=== PATIENT | male | born 1965 | race African-American/Black ===

== ENCOUNTER 2019-12-29 22:54 | Emergency (ER) | payer SELFPAY ==
[~2019-12-29] VITALS: Ht 170.2 cm; Wt 49.9 kg
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
--- NOTE | 2019-12-29 23:11 | NUR ---
ED Nurse Note: staff technologist at bedside performing foot xray
[2019-12-29] MEDS ORDERED: HYDROcodone/Acetamin 5/325 tab ORAL ONE (23:15)
[2019-12-29] MEDS ORDERED: IBUPROFEN600 M1 ORAL (23:30)
[2019-12-29] MEDS ORDERED: HYDROCODON-ACE1 EA15 ORAL (23:30)
[2019-12-29 23:50] VITALS: BP 142/88
--- NOTE | 2019-12-29 23:50 | NUR ---
ER DISCHARGE NOTE: Patient is cleared to be discharged per ERMD, pt is aox4, on room air, with stable vital signs. pt states pain had improved. pt was given dc, paper prescriptions, homeless resources packet, clean clothes and meal upon discharge. pt was able to verbalize understanding, pt id band removed. pt is able to ambulate with walker, steady but slow gait. pt took all belongings.
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
--- NOTE | 2019-12-30 16:20 | Diagnostic Imaging Report ---
Indication: Trauma, pain Technique: 3 views right foot Comparison: none Findings: There are posttraumatic and postsurgical changes of the distal tibia and fibula-please refer to separate ankle radiograph report. The bones appear osteoporotic. There is mild hallux valgus. There is mild hammertoe deformity of the second through fifth digit. There is pes planus abnormality. No definite acute foot fracture. Impression: Postsurgical and posttraumatic changes of the ankle No definite acute foot fracture. Osteoporotic change, possibly due to disuse
== END 2019-12-29 23:50 | disposition home or self-care (01) ==
LOC: EDBD 22:54 → EMR 23:14
DX: S82.201D Unspecified fracture of shaft of right tibia, subsequent encounter for closed fracture with routine healing (principal); S82.401D Unspecified fracture of shaft of right fibula, subsequent encounter for closed fracture with routine healing; V03.10XA Pedestrian on foot injured in collision with car, pick-up truck or van in traffic accident, initial encounter; Y92.410 Unspecified street and highway as the place of occurrence of the external cause; I10 Essential (primary) hypertension; B20 Human immunodeficiency virus [HIV] disease
CPT/HCPCS: 99283

== ENCOUNTER → 2020-01-13 | Emergency (ER) | payer SELFPAY ==
[~2020-01-13] VITALS: Ht 170.2 cm; Wt 47.6 kg
[~2020-01-13] MED LIST: AUGMENTIN 875-1 EAC1 ORAL; HYDROCODON-ACE1 EA15 ORAL; IBUPROFEN600 M1 ORAL; Lidocaine 2% 20mg/ml/EPI 0.01mg/ml 20ml ONE; Tetanus/Diptheria/Pertussis IM ONE
[2020-01-13 11:33] VITALS: BP 183/98
--- NOTE | 2020-01-13 11:34 | Diagnostic Imaging Report ---
Indications: Forehead trauma, head laceration Technique: Spiral acquisitions obtained through the brain. Angled axial and coronal 5 x 5 mm slices were reconstructed. Total dose length product 1125 mGycm. CTDI vol(s) 53 mGy. Dose reduction achieved using automated exposure control Comparison: None. Findings: There is left periorbital soft tissue contusion. There is also soft tissue contusion in the supraorbital frontal region just to the left of midline. Some associated soft tissue gas is in keeping with stated clinical history of laceration. There are some punctate opacities in the subcutaneous fat which may indicate small foreign bodies. No acute intracranial hemorrhage or edema. No mass effect nor midline shift. There is age-related enlargement of the ventricles and extra axial CSF spaces. There is periventricular deep white matter low-attenuation, consistent with chronic microvascular ischemic changes. There are old basal ganglia lacunar infarcts bilaterally. There is encephalomalacia in the right inferior frontal lobe, consistent with old infarct. There is encephalomalacia in the anterior right temporal lobe, consistent with old infarct. The calvarium is intact. The mastoids are clear. Orbits and sinuses are unremarkable Impression: Evidence of left periorbital soft tissue contusion and left frontal laceration Negative for acute intracranial bleed or mass effect Fairly extensive chronic and age-related changes, as described, out of portion to patient's age Multiple old infarcts The CT scanner at [facility] is accredited by the [employer] and the scans are performed using protocols designed to limit radiation exposure to as low as reasonably achievable to attain images of sufficient resolution adequate for diagnostic evaluation.
[2020-01-13 11:57] LABS: HEMOGLOBIN 9.6 G/DL (14.2-18.0); MEAN CORPUSCULAR VOLUME 88 FL (80-99); PLATELET COUNT 291 K/UL (150-450); RED BLOOD COUNT 3.53 M/UL (4.70-6.10); RED CELL DISTRIBUTION WIDTH 16.9 % (11.6-14.8); WHITE BLOOD COUNT 2.2 K/UL (4.8-10.8)
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
== END | disposition home or self-care (01) ==
LOC: EDUNIT# 10:31 → EDBD 10:33 → EMR 11:00
DX: S01.81XA Laceration without foreign body of other part of head, initial encounter (principal); I10 Essential (primary) hypertension; W17.89XA Other fall from one level to another, initial encounter; F17.200 Nicotine dependence, unspecified, uncomplicated; Y93.89 Activity, other specified; Y92.811 Bus as the place of occurrence of the external cause; Z21 Asymptomatic human immunodeficiency virus [HIV] infection status; Z72.89 Other problems related to lifestyle
CPT/HCPCS: 36415; 70450; 85007; 85025; 90471; 90715; 93005; 99284

== ENCOUNTER 2020-01-18 02:30 | Emergency (ER) | payer MEDICAID ==
[~2020-01-18] VITALS: Ht 170.2 cm; Wt 45.4 kg
[~2020-01-18 02:30] MED LIST changes: -Lidocaine 2% 20mg/ml/EPI 0.01mg/ml 20ml ONE; -Tetanus/Diptheria/Pertussis IM ONE
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
[2020-01-18] MEDS ORDERED: HYDROcodone/Acetamin 7.5/325 tab ORAL ONE (02:45)
[2020-01-18] MEDS ORDERED: Cephalexin 250mg/5ml Susp 100mL Bottle ORAL ONE (02:45)
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
[2020-01-18 03:00] VITALS: BP 128/80
[2020-01-18] MEDS ORDERED: Tetanus/Diptheria/Pertussis IM ONE (03:00)
[2020-01-18] MEDS ORDERED: HYDROCODON-ACE1 EA15 ORAL (03:56)
[2020-01-18] MEDS ORDERED: CEPHALEXIN500 MG ORAL (03:56)
[2020-01-18] MEDS ORDERED: IBUPROFEN600 M1 ORAL (03:56)
--- NOTE | 2020-01-18 04:30 | NUR ---
ED Nurse Note: Pt resting in bed with eyes closed, non-labored breathing, no signs of distress. Will continue to monitor
[2020-01-18 06:45] VITALS: BP 120/87
--- NOTE | 2020-01-18 06:45 | NUR ---
ER DISCHARGE NOTE: Patient is cleared to be discharged per ERMD, pt is aox4, on room air, with stable vital signs. pt was given dc and prescription instructions, pt was able to verbalize understanding, pt id band removed. pt is able to ambulate with steady gait with walker. pt took all belongings.
--- NOTE | 2020-01-18 13:25 | Diagnostic Imaging Report ---
Indication: Bilateral leg pain Technique: 2 views of the right tibia and fibula Comparison: none Findings: Surgical hardware is seen reducing distal right tibial fracture. Fracture line persists, only minimal callus formation and a strata. There is also comminuted fracture of the distal fibular shaft. Technologist reports that injury occurred approximately one month prior the hardware appears intact. No other fractures. Impression: Postsurgical and posttraumatic changes of the right tibia and fibula, findings as expected given history of recent surgical repair of the tibia fibular fracture No definite acute process
--- NOTE | 2020-01-18 13:25 | Diagnostic Imaging Report ---
Indication: Bilateral leg pain, itching and cramping Technique: 2 views of the left tibia and fibula Comparison: none Findings: No acute fractures. No dislocations. Joint spaces are preserved. No radiopaque foreign body Impression: Negative
== END 2020-01-18 06:45 | disposition home or self-care (01) ==
LOC: EDBD 02:30 → EMR 02:45
DX: S82.491A Other fracture of shaft of right fibula, initial encounter for closed fracture (principal); M79.605 Pain in left leg; B20 Human immunodeficiency virus [HIV] disease; Z91.14 Patient's other noncompliance with medication regimen; V03.10XA Pedestrian on foot injured in collision with car, pick-up truck or van in traffic accident, initial encounter; Y92.410 Unspecified street and highway as the place of occurrence of the external cause; I10 Essential (primary) hypertension; Z86.73 Personal history of transient ischemic attack (TIA), and cerebral infarction without residual deficits; S00.81XA Abrasion of other part of head, initial encounter; S80.812A Abrasion, left lower leg, initial encounter; Z23 Encounter for immunization
CPT/HCPCS: 73590; 90471; 90715; Z7502; 99284

== ENCOUNTER 2020-01-21 00:59 | Emergency (ER) | payer MEDICAID ==
[~2020-01-21] VITALS: Ht 170.2 cm; Wt 63.5 kg
[~2020-01-21 00:59] MED LIST changes: +CEPHALEXIN500 MG ORAL
[2020-01-21 01:00] VITALS: BP 122/78
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
[2020-01-21] MEDS ORDERED: Acetaminophen 500mg (ES) tab ORAL ONE (01:15)
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
[2020-01-21] MEDS ORDERED: Ketorolac 60mg Inj IM ONE (01:45)
[2020-01-21] MEDS ORDERED: NAPROXEN500 M1 ORAL (01:52)
[2020-01-21] MEDS ORDERED: NORCO 5-325 TA1 EAC1 ORAL (01:52)
[2020-01-21 02:25] VITALS: BP 128/85
--- NOTE | 2020-01-21 02:25 | NUR ---
ER DISCHARGE NOTE: Patient is cleared to be discharged per ERMD, pt is aox4, on room air, with stable vital signs. pt was given dc and prescription instructions, pt was able to verbalize understanding, pt id band removed without complications. pt is able to ambulate with steady gait with walker. pt took all belongings. provided resources for long term but refused to disclose dispo, pt clothing adequate, food offered.
--- NOTE | 2020-01-21 06:36 | NUR ---
POST DISCHARGE NOTE SW received a consult for homelessness. No social human services assistants was available at the time of discharge.
== END 2020-01-21 02:25 | disposition home or self-care (01) ==
LOC: EDBD 00:59 → EMR 01:13
DX: S90.822A Blister (nonthermal), left foot, initial encounter (principal); Y93.01 Activity, walking, marching and hiking; Y92.9 Unspecified place or not applicable; B20 Human immunodeficiency virus [HIV] disease; Z91.14 Patient's other noncompliance with medication regimen; I10 Essential (primary) hypertension; Z86.73 Personal history of transient ischemic attack (TIA), and cerebral infarction without residual deficits; R20.8 Other disturbances of skin sensation; M79.2 Neuralgia and neuritis, unspecified
CPT/HCPCS: 96372; Z7502; 99283

== ENCOUNTER 2020-04-21 14:12 | Inpatient (IN) | payer MEDICAID ==
[~2020-04-21] VITALS: Ht 162.6 cm; Wt 59.0 kg
[~2020-04-21 14:12] MED LIST changes: +NAPROXEN500 M1 ORAL; +NORCO 5-325 TA1 EAC1 ORAL
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
--- NOTE | 2020-04-21 15:57 | NUR ---
ED Nurse Note:labs drawn and sent
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
--- NOTE | 2020-04-21 16:00 | NUR ---
ED Nurse Note:gave pt a sandwich, juice and a soda.
[2020-04-21 16:16] LABS: MEAN CORPUSCULAR VOLUME 94 FL (80-99); PLATELET COUNT 125 K/UL (150-450); RED CELL DISTRIBUTION WIDTH 19.4 % (11.6-14.8); WHITE BLOOD COUNT 3.4 K/UL (4.8-10.8)
--- NOTE | 2020-04-21 16:18 | Diagnostic Imaging Report ---
Indication: Cough Technique: One view of the chest Comparison: none Findings: Lungs and pleural spaces are clear. Heart size is normal. There is a fracture deformity of the right clavicle Impression: No acute process
[2020-04-21 16:26] LABS: ANION GAP 7 mmol/L (5-15); BLOOD UREA NITROGEN 16 mg/dL (7-18); CALCIUM 8.4 MG/DL (8.5-10.1); CARBON DIOXIDE 25 MMOL/L (21-32); CHLORIDE 105 MMOL/L (98-107); CREATININE 0.8 MG/DL (0.55-1.30); SODIUM 137 MMOL/L (136-145)
[2020-04-21 16:30] LABS: ALANINE AMINOTRANSFERASE 63 U/L (12-78); ALBUMIN 2.9 G/DL (3.4-5.0); ALBUMIN/GLOBULIN RATIO 0.5 (1.0-2.7); ALKALINE PHOSPHATASE 112 U/L (46-116); ASPARTATE AMINO TRANSFERASE 102 U/L (15-37); BILIRUBIN,TOTAL 0.3 MG/DL (0.2-1.0)
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
--- NOTE | 2020-04-21 18:33 | NUR ---
ED Nurse Note:pt resting in no noted distress
[2020-04-21 18:49] VITALS: BP 151/78
--- NOTE | 2020-04-21 19:05 | NUR ---
ED Nurse Note: Patient is in bed resting with eye closed. Respiration even, unlabored.
--- NOTE | 2020-04-21 19:39 | NUR ---
NURSE NOTES: received report from SAMIA Cherry. awaiting pt arrival on unit.
--- NOTE | 2020-04-21 19:45 | NUR ---
TRANSFER TO FLOOR: Patient is stable, transferred to [address] [place] [address] via [facility] as ordered. Report given to REBECCA Tubbs on 4th floor.
[2020-04-21 19:54] VITALS: BP 146/80
--- NOTE | 2020-04-21 20:00 | NUR ---
NURSE NOTES: pt came up via gurney from the ER. alert and oriented x 4, no acute s/s of distress, pt with pain upon movement or change of positions, no request for pain medication at this time. vital signs are stable. belongings list reviewed, pt did not bring any medications, pt oriented to the floor and to the room. be low and locked, side rails up, yellow socks provided, fall education given.
[2020-04-22] VITALS: BP 124/69
--- NOTE | 2020-04-22 00:20 | NUR ---
NURSE NOTES: pt asleep. vital signs stable. no co of pain at this time while at rest. no acute distress noted. pt placed on NPO for abd US scheduled in the am.
[2020-04-22 04:00] VITALS: BP 143/72
--- NOTE | 2020-04-22 04:20 | NUR ---
NURSE NOTES: vital signs stable, no co pain while at rest, pt still NPO. no acute distress noted. pt asleep.
--- NOTE | 2020-04-22 06:45 | NUR ---
NURSE HAND-OFF: Important Events on Shift:new admission Patient Status: stable Diet: NPO after midnight Pending Orders: NA Pending Results/Labs:abd US Pending MD notification:NA Latest Vital Signs: Temperature 97.2 , Pulse 85 , B/P 143 /72 , Respiratory Rate 18 , O2 SAT 96 , Room Air, O2 Flow Rate . Vital Sign Comment: stable through the shift Latest York Fall Score: 55 Fall Risk: High Risk Safety Measures: Call light Within Reach, Bed Alarm , Side Rails Side Rails x2, Bed position Low and Locked. Fall Precautions: Iqra Sockgisselle Patient Fall Education Addendum: 04/22/20 at 0743 by Arley Miranda RN report given to REBECCA Werner
--- NOTE | 2020-04-22 07:55 | History & Physical ---
History and Physical History & Physicial Seen and examined. Full Dictation completed on 750 hours. Michelle Garza MD Apr 22, 2020 07:55
[2020-04-22 08:00] VITALS: BP 133/77
--- NOTE | 2020-04-22 08:08 | NUR ---
NURSE NOTES: Patient awake and alert,respirations unlabored.noted left leg boot on.Patient is NPO at this time for abdominal ultrasound..Bed alarm agent contract clerk light within reach.
--- NOTE | 2020-04-22 08:56 | Diagnostic Imaging Report ---
EXAM: CT Head Without Intravenous Contrast CLINICAL HISTORY: ALOC TECHNIQUE: Axial computed tomography images of the head/brain without intravenous contrast. CTDI is 106.8 mGy and DLP is 1747.9 mGy-cm. One or more of the following dose reduction techniques were used: automated exposure control, adjustment of the mA and/or kV according to patient size, use of iterative reconstruction technique. COMPARISON: No relevant prior studies available. FINDINGS: No acute intracranial hemorrhage. No midline shift or mass effect. Encephalomalacia in the inferior frontotemporal frontal lobe, consistent with old infarct. Age-related cerebral volume loss. Periventricular and subcortical white matter hypoattenuation, consistent with chronic microangiopathy. The visualized orbits appear grossly unremarkable. The calvarium is intact. The visualized paranasal sinuses and mastoid air cells are grossly clear. IMPRESSION: No acute intracranial hemorrhage, midline shift, or mass effect. 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
[2020-04-22 08:58] LABS: HEMATOCRIT 30.3 % (42.0-52.0); HEMOGLOBIN 9.2 G/DL (14.2-18.0); MEAN CORPUSCULAR VOLUME 92 FL (80-99); PLATELET COUNT 128 K/UL (150-450); RED BLOOD COUNT 3.29 M/UL (4.70-6.10); RED CELL DISTRIBUTION WIDTH 19.3 % (11.6-14.8); WHITE BLOOD COUNT 2.4 K/UL (4.8-10.8)
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
[2020-04-22 09:36] LABS: ALANINE AMINOTRANSFERASE 53 U/L (12-78); ALBUMIN 2.6 G/DL (3.4-5.0); ALBUMIN/GLOBULIN RATIO 0.5 (1.0-2.7); ALKALINE PHOSPHATASE 109 U/L (46-116); ANION GAP 5 mmol/L (5-15); ASPARTATE AMINO TRANSFERASE 76 U/L (15-37); BILIRUBIN,TOTAL 0.3 MG/DL (0.2-1.0); BLOOD UREA NITROGEN 9 mg/dL (7-18); CALCIUM 8.2 MG/DL (8.5-10.1); CARBON DIOXIDE 29 MMOL/L (21-32); CHLORIDE 107 MMOL/L (98-107); CREATININE 0.8 MG/DL (0.55-1.30); POTASSIUM 3.3 MMOL/L (3.5-5.1); SODIUM 141 MMOL/L (136-145)
--- NOTE | 2020-04-22 10:11 | Diagnostic Imaging Report ---
EXAM: US Abdomen Complete CLINICAL HISTORY: WEAK TECHNIQUE: Real-time ultrasound of the abdomen with image documentation. COMPARISON: No relevant prior studies available. FINDINGS: Liver: The liver measures 13.8 cm. No intrahepatic bile duct dilation. Gallbladder: Cholelithiasis. No pericholecystic fluid or gallbladder wall thickening.. Common bile duct: The common bile duct measures 5 mm. No stones. No dilation. Pancreas: Unremarkable as visualized. Kidneys: The right kidney measures 8.3 cm. No hydronephrosis or nephrolithiasis. The left kidney was not visualized due to body habitus. Spleen: Unremarkable. No splenomegaly. 8 cm. Aorta: The proximal aorta measures 1.8 cm. No aneurysm. Inferior vena cava: Unremarkable. IMPRESSION: Cholelithiasis. No gallbladder wall thickening or pericholecystic fluid. No ultrasound evidence of acute cholecystitis. Nonvisualized left kidney.
[2020-04-22 12:00] VITALS: BP 134/65
[2020-04-22 16:00] VITALS: BP 120/74
--- NOTE | 2020-04-22 16:59 | NUR ---
CASE MANAGEMENT: INITIAL REVIEW 54 YO M BRITTANY FROM [facility] CC: LOWER EXTREMITY WEAKNESS PMHx: HTN SI:GENERALIZED WEAKNESS VS: T 98.1 HR 86 RR 18 B/P 128/78 SATS 98% ON RA LABS: WBC 3.4 CA 8.4 AST 102 IS: PROTONIX PO QD PATIENT ADMITTED TO MED/SURG 04/21/2020 @ 1515 DCP: TBD CONCURRENT REVIEW FOR 04/22/2020 SIGENERALIZED WEAKNESS VS: T 97 HR 99 RR 18 B/P 120/74 SATS 99% ON RA LABS: K 3.3 CA 8.2 AST 76 IS:PROTONIX PO QD MED/SURG PLAN OF CARE: MED GALEANA
--- NOTE | 2020-04-22 18:30 | NUR ---
NURSE NOTES: Patient resting,no complaints at this time.Call light within reach.
--- NOTE | 2020-04-22 19:20 | NUR ---
NURSE HAND-OFF: Bang FERNANDEZ Important Events on Shift:[Ultrasound of abdomen done.] Patient Status: [stable] Diet: Regular Pending Orders: [] Pending Results/Labs:[] Pending MD notification:[] Latest Vital Signs: Temperature 97.0 , Pulse 99 , B/P 120 /74 , Respiratory Rate 18 , O2 SAT 99 , Room Air, O2 Flow Rate . Vital Sign Comment: [] Latest York Fall Score: 55 Fall Risk: High Risk Safety Measures: Call light Within Reach, Bed Alarm Zone 1, Side Rails Side Rails x2, Bed position Low and Locked. Fall Precautions: Door Sign Report given to [].
--- NOTE | 2020-04-22 19:20 | NUR ---
NURSE NOTES: Received report from REBECCA Werner. Pt is in bed A&Ox4, call light within reach, bed in lowest position. Able to make needs known. Will continue to monitor.
[2020-04-22 20:00] VITALS: BP 134/85
[2020-04-22] MEDS: HYDROcodone/Acetamin 5/325 tab ORAL PRN (20:03)
[2020-04-23] VITALS: BP 115/70
[2020-04-23 04:00] VITALS: BP 127/73
[2020-04-23] MEDS: HYDROcodone/Acetamin 5/325 tab ORAL PRN (04:31)
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
--- NOTE | 2020-04-23 07:30 | NUR ---
NURSE NOTES: Received report from REBECCA Cuenca. Pt is in bed A&Ox4, no s/s of respiratory distress, call light within reach, bed in lowest position. Able to make needs known. Will continue to monitor.
--- NOTE | 2020-04-23 07:30 | NUR ---
NURSE HAND-OFF: Important Events on Shift: eating well, pain management Patient Status: calm Diet: regular Pending Orders: Pending Results/Labs: Pending MD notification: Latest Vital Signs: Temperature 98.9 , Pulse 93 , B/P 127 /73 , Respiratory Rate 20 , O2 SAT 94 , Room Air, O2 Flow Rate . Vital Sign Comment: VSS Latest [place] Fall Score: 55 Fall Risk: High Risk Safety Measures: Call light Within Reach, Bed Alarm Zone 1, Side Rails Side Rails x2, Bed position Low and Locked. Fall Precautions: Door Sign Report given to REBECCA Chatterjee.
[2020-04-23 08:00] VITALS: BP 122/67
[2020-04-23 09:15] LABS: HEMATOCRIT 29.2 % (42.0-52.0); HEMOGLOBIN 8.8 G/DL (14.2-18.0); MEAN CORPUSCULAR VOLUME 94 FL (80-99); PLATELET COUNT 117 K/UL (150-450); RED BLOOD COUNT 3.11 M/UL (4.70-6.10); RED CELL DISTRIBUTION WIDTH 20.2 % (11.6-14.8); WHITE BLOOD COUNT 2.5 K/UL (4.8-10.8)
[2020-04-23 09:50] LABS: FERRITIN 91 NG/ML (8-388); LACTATE DEHYDROGENASE 288 U/L (81-234)
[2020-04-23 10:01] LABS: % IRON SATURATION 10 % (15-50); IRON 25 ug/dL (50-175); TOTAL IRON BINDING CAPACITY 259 ug/dL (250-450)
--- NOTE | 2020-04-23 11:30 | NUR ---
PT Note PT eval done, limited by patient's poor cooperation. Patient can benefit from PT services to improve his muscle strength and balance and ROM to improve his functional mobility to independent level to enable him to return to [facility]. Recommend for patient to have a FWW on DC. Addendum: 04/23/20 at 1604 by JELANI FROST PT Amended: Links added.
[2020-04-23 12:00] VITALS: BP 129/87
--- NOTE | 2020-04-23 14:04 | NUR ---
NURSE NOTES: Patient left AMA despite RN trying to convince him to stay. Patient signed the AMA and belonging sheet. Dr. Garza made aware. Patient was provided with a walker. IV catheter and ID band removed. Vitals stable. The patient was escorted by RN and security orderly to the exit.
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
== END 2020-04-23 13:35 | disposition left against medical advice (07) | DRG 660 ==
LOC: EDBD 14:12 → EMR 14:21 → 4E 15:15 → EDBEDREQ 18:00
DX: D61.818 Other pancytopenia (principal); R53.1 Weakness; E87.6 Hypokalemia; E46 Unspecified protein-calorie malnutrition; F99 Mental disorder, not otherwise specified; I10 Essential (primary) hypertension; Z59.0 Homelessness; K80.20 Calculus of gallbladder without cholecystitis without obstruction; Z86.73 Personal history of transient ischemic attack (TIA), and cerebral infarction without residual deficits; S99.912D Unspecified injury of left ankle, subsequent encounter; V09.20XD Pedestrian injured in traffic accident involving unspecified motor vehicles, subsequent encounter
CPT/HCPCS: 36415; 70450; 71045; 76700; 80053; 82607; 82728; 82746; 83540; 83550; 83615; 85007; 85025; 85044; 85060; 86703; 86705; 86709; 86803; 87040; 87081; 87340; 99285